=== PATIENT | male | born 1985 | race Caucasian/White ===

== ENCOUNTER 2018-11-05 14:49 | Emergency (ER) | payer OTHER ==
[~2018-11-05] VITALS: Ht 177.8 cm; Wt 97.1 kg
[2018-11-05 14:56] VITALS: BP 128/72; Ht 177.8 cm; Wt 97.1 kg
== END 2018-11-05 16:16 | disposition left against medical advice (07) ==
LOC: ED 14:49
DX: Z53.21 Procedure and treatment not carried out due to patient leaving prior to being seen by health care provider (principal)
CPT/HCPCS: 87804